=== PATIENT | male | born 1955 | race Caucasian/White ===

== ENCOUNTER 2020-07-14 22:21 | Inpatient (IN) | payer OTHER, MEDICAID, SELFPAY ==
[~2020-07-14] VITALS: Ht 167.6 cm; Wt 99.8 kg
[2020-07-14 22:30] VITALS: BP 99/47
--- NOTE | 2020-07-14 22:31 | NUR ---
PT BIBA TO BED 07.
--- NOTE | 2020-07-14 22:55 | NUR ---
LAB AT BEDSIDE
--- NOTE | 2020-07-14 23:00 | NUR ---
65 Y/O MALE BIBA FROM [facility] FOR ABNORMAL LABS. PT ON 3 L NASAL CANNULA. PT GCS 11. CONDOM CATHETER FROM FACILITY IN PLACE. MEDHX- ESRD, DYSPHAGIA, DEMENTIA, CVA, SEIZURES, HTN, SCHIZOPHRENIA NKA
[2020-07-14 23:09] LABS: HEMATOCRIT 24.7 % (36-52); HEMOGLOBIN 7.7 g/dL (12.0-18.0); MEAN CORPUSCULAR HEMOGLOBIN 29 pg (27-31); MEAN CORPUSCULAR HGB CONC 31 g/dL (33-37); PLATELET COUNT (AUTO) 134 K/uL (140-450); RED BLOOD CELL COUNT(AUTO) 2.65 MIL/uL (4.20-6.10); RED CELL DISTRIBUTION WIDTH 19.5 % (11.6-13.7); WHITE BLOOD COUNT (AUTO) 7.6 K/uL (4.8-10.8)
[2020-07-14 23:28] LABS: EOSINOPHILS % (MANUAL) 1 % (0-4); LYMPHOCYTES % (MANUAL) 14 % (20-46); METAMYELOCYTES % 1 % (0-0); MONOCYTES % (MANUAL) 7 % (5-12); MYELOCYTES % 1 % (0-0)
[2020-07-14 23:32] LABS: ANION GAP 23.9 (8-16); CARBON DIOXIDE 12.2 mmol/L (21-32); POTASSIUM 5.1 mmol/L (3.5-5.1); TOTAL BILIRUBIN 0.2 mg/dL (0.0-1.0)
[2020-07-14 23:40] LABS: CREATININE 7.6 mg/dL (0.6-1.3)
[2020-07-15] MEDS ORDERED: NACL 0.9% 1,000 ML IV ONE ×2 (00:25)
--- NOTE | 2020-07-15 01:45 | NUR ---
CALLED YANELI MOORE [facility] [place] WHO STATED PATIENT'S PARA EDUCATOR IS A DR. CORLEY. UNABLE TO PROVIDE FULL NAME, ADDRESS OR PHONE NUMBER FOR SAID PARA EDUCATOR.
--- NOTE | 2020-07-15 02:15 | NUR ---
NAZARIO AND NOVEL SWABS COLLECTED AND SENT TO LAB
--- NOTE | 2020-07-15 02:23 | NUR ---
RECEIVED CALLED FROM [place], THERAPEUTIC CASE MANAGER DR. CORLEY [phone] . FAX NUMBER PROVIDED [phone]
--- NOTE | 2020-07-15 04:03 | NUR ---
PT HAS EYES CLOSED, RESPIRATIONS EVEN AND UNLABORED, CHEST RISE IS SYMMETRICAL. WILL CONTINUE TO MONITOR.
[2020-07-15] MEDS ORDERED: CHOL100018 (04:21)
[2020-07-15] MEDS ORDERED: ACET-2619 PO (04:21)
[2020-07-15] MEDS ORDERED: OSC500 PO (04:21)
[2020-07-15] MEDS ORDERED: VALB40CA PO (04:21)
[2020-07-15] MEDS ORDERED: FURO-570 PO (04:21)
[2020-07-15] MEDS ORDERED: ZINC220C28 PO (04:21)
[2020-07-15] MEDS ORDERED: OMEP-124 PO (04:21)
[2020-07-15] MEDS ORDERED: RIVA20TA4 PO (04:21)
[2020-07-15] MEDS ORDERED: ASCO500T95 PO (04:21)
[2020-07-15] MEDS ORDERED: FERR325E14 PO (04:21)
[2020-07-15] MEDS ORDERED: FLUP1TAB PO (04:21)
[2020-07-15] MEDS ORDERED: MULT-1469 PO (04:21)
[2020-07-15] MEDS ORDERED: DOCU-300 PO (04:21)
--- NOTE | 2020-07-15 05:34 | NUR ---
DR CAREY, NEPHRO CONSULT IN TO ASSESS PT
--- NOTE | 2020-07-15 07:02 | NUR ---
PATIENT HAS BEEN SCREENED AND CATEGORIZED MODERATE NUTRITION RISK. PATIENT WILL BE SEEN WITHIN 3-5 DAYS OF ADMISSION. 07/17/20-07/19/20 LUIS ANGEL MS, RDN
--- NOTE | 2020-07-15 07:21 | NUR ---
REPORT GIVEN TO MATTIE HELM FOR CONTINUITY OF CARE
--- NOTE | 2020-07-15 08:47 | NUR ---
Performed CATARINA LARIOS, walked to lab.
[2020-07-15] MEDS ORDERED: guaiFENesin DM 200/20 MG-10 ML 10 ML UDC PO PRN (09:00)
[2020-07-15] MEDS ORDERED: ZOLPIDEM 5 MG TAB PO PRN (09:00)
[2020-07-15] MEDS ORDERED: HYDROcodone/APAP 7.5/325 MG 1 TAB PO PRN (09:00)
[2020-07-15] MEDS ORDERED: POTASSIUM CHLORIDE 40 MEQ, LIDOCAINE MPF 1% 25 MG in NACL 0.9% 250 ML IV PRN (09:00)
[2020-07-15] MEDS: PANTOPRAZOLE 40 MG TABEC PO SCH ×2 (09:00→09:53)
[2020-07-15] MEDS ORDERED: ACETAMINOPHEN 325 MG TAB PO PRN ×2 (09:00→13:25)
[2020-07-15] MEDS ORDERED: ONDANSETRON 4 MG/2 ML VIAL IM/IVP PRN (09:00)
[2020-07-15] MEDS ORDERED: DOCUSATE SODIUM 100 MG GELCAP PO PRN (09:00)
[2020-07-15] MEDS: NACL 0.9% 1,000 ML IV SCH ×2 (09:54→23:51)
[2020-07-15 11:07] LABS: PROTHROMBIN TIME 9.4 secs (10.8-13.4)
[2020-07-15 11:53] LABS: CHOL/HDL RATIO 3.7 (1-4.5)
[2020-07-15 11:55] LABS: FREE T4 (FREE THYROXINE) 0.64 ng/dL (0.76-1.46); MAGNESIUM 3.1 mg/dL (1.8-2.4); THYROID STIMULATING HORMONE 4.26 uIU/mL (0.34-3.74)
[2020-07-15 12:39] LABS: APPEARANCE,URINE CLOUDY (CLEAR); BILIRUBIN,URINE 1+ (NEGATIVE); BLOOD, URINE NEGATIVE (NEGATIVE); COLOR,URINE YELLOW (YELLOW); UGLUCOSE NEGATIVE (NEGATIVE)
[2020-07-15 12:40] LABS: LEUKOCYTE ESTERASE ,URINE 2+ (NEGATIVE); NITRITE, URINE NEGATIVE (NEGATIVE)
[2020-07-15 12:43] LABS: RBC,URINE 0-5 /HPF (0-5); WBC,URINE TOO MANY TO COUNT /HPF (0-5)
[2020-07-15] MEDS ORDERED: HYDROcodone/APAP 5/325 MG 1 TAB TAB PO PRN (13:30)
[2020-07-15] MEDS ORDERED: LORazepam 2 MG/ML VIAL IVP PRN (13:30)
[2020-07-15] MEDS ORDERED: ONDANSETRON 4 MG/2 ML VIAL IVP PRN (13:30)
[2020-07-15] MEDS ORDERED: PHENYTOIN 100 MG/2 ML VIAL IVP ONE (16:55)
--- NOTE | 2020-07-15 16:56 | NUR ---
Spoke with Dr. Weiner to inform of tonic-clonic seizure, per MD order dilantin 1G once and 100mg q6h. Seizure precautions in place, VSS, will continue to monitor.
--- NOTE | 2020-07-15 16:59 | NUR ---
Patient will be admitted to care of MD EDGAR. Admited to TELEMETRY. Will go to room 118-B. Belongings list completed. Report to VOLODYMYR KAY. ALL QUESTIONS ANSWERED, ENDORSED PT IN STABLE CONDITION, IN NAD, VSS. PTS FAMILY IN AGREEMENT WITH ADMISSION.
[2020-07-15 17:30] VITALS: BP 103/46
--- NOTE | 2020-07-15 17:30 | NUR ---
PATIENT ARRIVED ON MST FROM ER. PATIENT IN STABLE CONDITION. WILL CONTINUE TO MONITOR.
--- NOTE | 2020-07-15 17:46 | NUR ---
SPOKE TO PATIENT'S MOTHER, ROSA MUNOZ [phone] REGARDING DNR POLST FOR PATIENT THAT WAS COMPLETED IN 2016 TO VERIFY IF THAT IS STILL MOTHER'S WISHES. PER MOTHER, SHE STILL WANTS SON TO BE DNR STATUS.
[2020-07-15] MEDS ORDERED: LIDOCAINE MPF IV ONE (18:30)
[2020-07-15] MEDS ORDERED: NACL 0.9% IV ONE (18:30)
[2020-07-15] MEDS ORDERED: PHENYTOIN IV ONE (18:30)
--- NOTE | 2020-07-15 18:53 | NUR ---
SCHEDULED MEDICATIONS DUE GIVEN. WILL CONTINUE TO MONITOR.
--- NOTE | 2020-07-15 19:35 | NUR ---
GAVE REPORT TO SHOW CARD LETTERER NURSE FOR CONTINUITY OF CARE. PATIENT IN STABLE CONDITION.
[2020-07-15 20:00] VITALS: BP 81/35
[2020-07-15] MEDS ORDERED: DOCUSATE SODIUM 100 MG GELCAP PO SCH (21:00)
[2020-07-15] MEDS ORDERED: ZINC SULF 220 MG CAP PO SCH (21:00)
[2020-07-15] MEDS ORDERED: ASCORBIC ACID 500 MG TAB PO SCH (21:00)
[2020-07-15] MEDS ORDERED: FERROUS SULFATE 325 MG TABEC PO SCH (21:00)
[2020-07-15] MEDS ORDERED: CALCIUM CARBONATE 500 MG TAB PO SCH (21:00)
[2020-07-16] VITALS: BP 91/30
[2020-07-16] MEDS ORDERED: PHENYTOIN 100 MG/2 ML VIAL IVP SCH
--- NOTE | 2020-07-16 06:00 | NUR ---
PT ON DNR STATUS. PT CONVERTED FROM SR TO ASYSTOLE AT 0356. NO SPONTANEOUS RESPIRATIONS NOTED. NO PERIPHERAL PULSES. -NSG CLEANING PORTER NOTIFIED AND DR. HOLLIS NOTIFIED. -DR. NIRMAL HOLLIS ARRIVED AND PRONOUNCED PT AT 0430. O2 STOPPED. IVF STOPPED. -[facility] ([phone]) NOTIFIED AND DECLINED D/T DEMENTIA. CASE #[id number]. -S.B. PROCEDURE RN ([phone]) NOTIFIED AND WILL CALL BACK. -"PERSON TO NOTIFY" (ROSA MUNOZ, MOTHER ([phone])) WAS CALLED, MESSAGE LEFT TO CALL [facility] ([phone]). -NO POSTMORTEM CARE UNTIL CLEARED BY PROCEDURE RN. -ADMITTING NOTIFIED AT 05 OF PT . -528 - AUGUSTIN VASQUES (PROCEDURE RN'S OFFICE) GAVE PERMISSION TO RELEASE OF BODY. -529 - MRS. ROSA MUNOZ (PT'S MOTHER) CALLED BACK AND WAS NOTIFIED OF PT PASSING. -532 - DR. CAREY NOTIFIED IN PERSON OF PT PASSING. -50 - Tyson TYLER MESSAGED THAT PT PASSED.
--- NOTE | 2020-07-16 06:04 | NUR ---
CALLED [facility] ([phone]) FOR INFORMATION ON MORTUARY. PT'S MOTHER REPORTED THAT [facility] ([phone]), [address] [place] [address] MIGHT BE ANOTHER CHOICE.
[2020-07-16] MEDS ORDERED: LEVOTHYROXINE 0.05 MG TAB PO SCH (06:30)
--- NOTE | 2020-07-16 07:11 | NUR ---
NOTE CLARIFICATION: PRE-ARRANGEMENTS WERE MADE BY YANELI SILVA [facility] FOR [facility] .
--- NOTE | 2020-07-16 07:20 | NUR ---
SPOKE W [facility] AND THEY WILL COME SOON TO P/U PT.
[2020-07-16] MEDS ORDERED: RIVAROXABAN 10 MG TAB PO SCH (09:00)
[2020-07-16] MEDS ORDERED: PANTOPRAZOLE 40 MG TABEC PO SCH (09:00)
[2020-07-16] MEDS ORDERED: VIT-B COMP/VIT-C/FOLIC ACID 1 TAB PO SCH (09:00)
[2020-07-17 09:09] LABS: FOLIC ACID > 20.00 ng/mL (>3.0)
[2020-07-17 13:18] LABS: FERRITIN 424 ng/mL (30 - 400); TRANSFERRIN 144 mg/dL (200 - 370)
== END 2020-07-16 11:38 | DRG 682 ==
LOC: MED 22:21 → MTU 07-15 01:53 → MMU 07-15 16:16 → MTU 07-15 16:32
PROVIDERS: ADMIT Preventive Medicine Preventive Medicine/Occupational Environmental Medicine; ATTEND Preventive Medicine Preventive Medicine/Occupational Environmental Medicine
DX: N17.0 Acute kidney failure with tubular necrosis (principal); E43 Unspecified severe protein-calorie malnutrition; E87.2 Acidosis; Z66 Do not resuscitate; D64.9 Anemia, unspecified; N18.4 Chronic kidney disease, stage 4 (severe); Z68.35 Body mass index [BMI] 35.0-35.9, adult; F20.9 Schizophrenia, unspecified; G40.909 Epilepsy, unspecified, not intractable, without status epilepticus; I46.9 Cardiac arrest, cause unspecified; I12.9 Hypertensive chronic kidney disease with stage 1 through stage 4 chronic kidney disease, or unspecified chronic kidney disease; J44.9 Chronic obstructive pulmonary disease, unspecified; Z20.822 Contact with and (suspected) exposure to COVID-19; F01.50 Vascular dementia, unspecified severity, without behavioral disturbance, psychotic disturbance, mood disturbance, and anxiety; E83.39 Other disorders of phosphorus metabolism; E83.41 Hypermagnesemia; E03.9 Hypothyroidism, unspecified; E78.5 Hyperlipidemia, unspecified; Z86.73 Personal history of transient ischemic attack (TIA), and cerebral infarction without residual deficits
CPT/HCPCS: 36415; 71045; 76770; 80053; 81001; 82150; 82607; 82728; 82746; 83540; 83690; 83735; 83880; 84100; 84439; 84443; 84484; 85025; 85045; 85610; 85730; 87081; 87086; 99291; 99292; J1165; J2001; J2060; U0003